=== PATIENT | female | born 1990 | race Hispanic/Latino ===

== ENCOUNTER 2018-07-25 10:21 | Emergency (ER) | payer MEDICAID, OTHER ==
[2018-07-25 11:00] LABS: #Lymphocytes 1.8 thou/uL (1.20-3.40); #Monocytes 0.4 thou/uL (0.11-0.59); #Neutrophils 6.3 thou/uL (1.40-6.50); %Basophils 0.6 % (0.0-1.0); %Eosinophils 0.4 % (0.0-10.0); %Monocytes 4.8 % (0.0-10.0); %Neutrophils 73.2 % (42.0-75.0); Hemoglobin 14.2 g/dL (12.0-16.0); Mean Corpuscular HGB CONC 34.1 g/dL (32.0-36.0); Mean Corpuscular Hemoglobin 30.7 pg (27.0-31.0); Mean Corpuscular Volume 90.1 fL (78.0-98.0); Mean Platelet Volume 8.7 fL (7.4-10.4); Platelet Count 207 thou/uL (130-400); RBC Distribution Width 11.5 % (11.5-14.5); Red Blood Cell (RBC) Count 4.61 mill/uL (4.20-5.40); White Blood Cell (WBC) Count 8.6 thou/uL (4.8-10.8)
[2018-07-25 11:23] LABS: Bilirubin Small (Negative); Blood, Urine Negative (Negative); Clarity CLOUDY (Clear); Glucose, Urine (Dipstick) Negative (Negative); Leukocyte Moderate (Negative); Nitrite Negative (Negative); Protein, Urine (Dipstick) 30 mg/dL (Neg-Trace); Specific Gravity, Urine 1.031 (1.002-1.036)
[2018-07-25 11:29] LABS: Albumin 4.4 g/dL (3.5-5.0); Anion Gap 12 mmol/L (10-20); Calcium 9.8 mg/dL (7.8-10.44); Carbon Dioxide 20 mmol/L (22-29); Chloride 107 mmol/L (98-107); Globulin 3.2 g/dL (2.4-3.5); Glucose 79 mg/dL (70-105); Potassium 3.7 mmol/L (3.5-5.1); Protein, Total 7.6 g/dL (6.0-8.3); Sodium 135 mmol/L (136-145)
[2018-07-25 11:31] LABS: Pathc Cast-AUWi Flag 0.14 (0-2.49)
[2018-07-25 11:40] LABS: Alkaline Phosphatase 56 U/L (40-150); Bilirubin, Total 0.4 mg/dL (0.2-1.2); Calc. Creatinine Clearance 0 mL/min (70-130); Estimated GFR-MDRD Greater than 90
[2018-07-25 11:41] LABS: Bacteria/HPF 1+ HPF (None Seen); Hyaline Casts/LPF NONE SEEN LPF (0-3 Hyaline); RBC/HPF None Seen HPF (0-3); WBC/HPF 0-3 HPF (0-3)
[2018-07-25 11:41] LABS: ALT (SGPT) 17 U/L (8-55); AST (SGOT) 15 U/L (5-34); BUN (Urea Nitrogen) 7 mg/dL (7.0-18.7)
[2018-07-25] MEDS ORDERED: Ondansetron ODT 4 MG TAB ONE (13:25)
[2018-07-25] MEDS ORDERED: Mag-Al 1200 mg/1200 mg/30 ML UDCUP ONE (13:52)
== END 2018-07-25 15:00 | disposition home or self-care (01) ==
LOC: ERS 10:21
DX: O21.9 Vomiting of pregnancy, unspecified (principal); O99.89 Other specified diseases and conditions complicating pregnancy, childbirth and the puerperium; R82.71 Bacteriuria; O99.341 Other mental disorders complicating pregnancy, first trimester; F41.9 Anxiety disorder, unspecified; F32.9 Major depressive disorder, single episode, unspecified; Z3A.11 11 weeks gestation of pregnancy
CPT/HCPCS: 36415; 80053; 81003; 81015; 84702; 85025; 87086; 99284; Q0162

== ENCOUNTER 2018-11-19 19:37 | Day surgery (SDC) | payer MEDICAID, OTHER ==
[2018-11-19 20:07] VITALS: BMI 26.8
--- NOTE | 2018-11-19 20:42 | HP ---
TRIAGE HISTORY AND PHYSICAL. TIME OF EVALUATION/INTERVENTION: 2020 hours. This is a patient of Dr. Iman Marin. The patient is here for a complaint of vaginal discharge/white. HISTORY OF PRESENT ILLNESS: This is a 28-year-old, G2, P1 with a history of a prior vaginal , who is at 28 weeks and 1 day gestation with a complaint of white discharge for 2 days. She denies gush of water, leakage, or vaginal bleeding. She denies fever or GI symptoms. She has no dysuria. She has good movement. REVIEW OF SYSTEMS: Complete review of systems was checked and is otherwise negative unless specified in the HPI. PAST MEDICAL HISTORY: Noncontributory. PAST SURGICAL HISTORY: Negative. OB HISTORY: Significant for a vaginal . ALLERGIES: NONE. SOCIAL HISTORY: Negative x3. PHYSICAL EXAMINATION: VITAL SIGNS: On physical exam, the patient's blood pressure is 117/71 and temperature is 98.2. GENERAL: She is in no acute distress. ABDOMEN: Soft and nontender and size consistent with dates. PELVIC: There is no evidence of vaginal bleeding grossly. Cervical exam is currently deferred. It is deferred as there are no symptoms of contractions. I have ordered 2 interventions, a VPIII vaginal test and an AmniSure vaginal collection. On monitor, heart tones are category 1, even though she is only at 28 weeks. She has no evidence of contractions. ASSESSMENT: This is a 28-year-old, G2, P1, at 28 weeks and 1 day with complaint of vaginal discharge, suspicious for vaginitis. There is no evidence of overt rupture of membranes. PLAN: 1. I will order AmniSure to confirm that this is not the fluid, although I do not suspect that based on history. 2. I have ordered a VPIII for vaginitis evaluation. 3. No evidence of labor at this time. 4. We will await final VPIII results and AmniSure results for final disposition. Job ID: [id number]
[2018-11-19 21:06] LABS: Amnisure Test No Membranes Rupture (No Rupture)
[2018-11-19 21:07] LABS: Amnisure Internal Control QC ACCEPTABLE (ACCEPTABLE)
--- NOTE | 2018-11-19 22:05 | PDOC.EVN ---
Event Note - Event Note Event Note: and VP3 negative. No evidence abnormal results and clinically well...ok for outpatinet follow up
== END 2018-11-19 22:15 | disposition home or self-care (01) ==
LOC: L&D/OP 19:37
PROVIDERS: ATTEND Obstetrics & Gynecology
DX: O99.89 Other specified diseases and conditions complicating pregnancy, childbirth and the puerperium (principal); N89.8 Other specified noninflammatory disorders of vagina; Z3A.28 28 weeks gestation of pregnancy; Z79.899 Other long term (current) drug therapy
CPT/HCPCS: 84112; 87480; 87510; 87660; 99283

== ENCOUNTER 2018-12-18 17:17 | Day surgery (SDC) | payer OTHER ==
[2018-12-18 17:42] VITALS: BP 101/62; TEMP 98.6; BMI 28.9
[2018-12-18 18:41] LABS: Bilirubin Negative (Negative); Blood, Urine Negative (Negative); Clarity CLEAR (Clear); Glucose, Urine (Dipstick) Negative (Negative); Leukocyte Small (Negative); Nitrite Negative (Negative); Protein, Urine (Dipstick) Negative (Neg-Trace); Specific Gravity, Urine 1.022 (1.002-1.036); pH, Urine 6.5 (5.0-9.0)
[2018-12-18 18:44] LABS: Bacteria/HPF None Seen HPF (None Seen); Hyaline Casts/LPF 0-3 HYALINE CAST LPF (0-3 Hyaline); Pathc Cast-AUWi Flag 0.29 (0-2.49); RBC/HPF 0-3 HPF (0-3); Squamous Epithelial 0-3 HPF (0-3); WBC/HPF 0-3 HPF (0-3)
[2018-12-18] MEDS ORDERED: Lactated Ringer's 1,000 ML IV SCH (18:45)
--- NOTE | 2018-12-18 19:20 | PDOC.LDPN ---
Labor & Delivery Progress Note - Subjective Subjective: vaginal pressure - Objective Vital signs reviewed and normal: yes General: NAD Uterine fundus: non tender Dilation: FT Effacement: 0% Station: -3 FHT: category 1 [place] contractions every: irregular, now resolved with IVF hydration - Assessment (1) 32 weeks gestation of Code(s): Z3A.32 - 32 WEEKS GESTATION OF Current Visit: Yes Status : Acute (2) contractions Code(s): O47.9 - FALSE LABOR, UNSPECIFIED Current Visit: Yes Status: Acute
--- NOTE | 2018-12-18 20:07 | PRG ---
DATE OF SERVICE: 12/18/2018 OB ED note. TIME OF SERVICE: 1915 hours. PRESENTING COMPLAINTS: Possible contractions, possible dehydration at 32 weeks. HISTORY OF PRESENT ILLNESS: Ms. Chau is a 28-year-old, 2, para 1, at 32 weeks with a stated EDC of 02/10, who was seen by Dr. Marin at [facility]. She was noted to not have ruptured membranes and a long cervix. However, she was feeling some contractions, was concerned about possible labor. The patient was sent over and received IV fluids. She is noted to not be having any significant contractions and has a category one heart rate tracing. 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 History of BV. Blood type A positive. Antibody negative. Pap negative. Rubella immune. VDRL nonreactive. Hepatitis B, GC, chlamydia negative, 50-gram within normal limits. PAST MEDICAL HISTORY: Denies. PAST SURGICAL HISTORY: Denies. ALLERGIES: DENIES. MEDICATIONS: vitamins. SOCIAL HISTORY: Denies tobacco, alcohol, drug abuse. FAMILY HISTORY: Noncontributory. REVIEW OF SYSTEMS: Noncontributory. PHYSICAL EXAMINATION: GENERAL: female, resting comfortably. No acute distress. VITAL SIGNS: Blood pressure 102/61, pulse 85, respirations 18, and temperature 98.4. HEENT: Within normal limits. LUNGS: Clear to auscultation bilaterally. HEART: Regular rate and rhythm. ABDOMEN: Soft and nontender without rebound or guarding. No palpable contractions. GENITALIA: Vaginal exam is deferred as it was performed by Dr. Marin in the office. heart rate tracing reveals a category one tracing. Known significant contractions noted. No deaccelerations noted. The patient received 1 L of IV fluids and feels better. No significant contractions noted prior to or after IV fluid administration. IMPRESSION: Discomforts of with [place] contractions. No evidence of active labor at 32 weeks gestation. PLAN: Discharge home. Keep scheduled followup with Dr. Marin. The patient was diagnosed with BV and given a prescription for Flagyl, which she will grape picker at the pharmacy. This diagnosis was made at [facility]. Job ID: [id number]
== END 2018-12-18 19:24 | disposition home health service (06) ==
LOC: L&D/OP 17:17
PROVIDERS: ATTEND Obstetrics & Gynecology
DX: O47.03 False labor before 37 completed weeks of gestation, third trimester (principal); Z3A.32 32 weeks gestation of pregnancy
CPT/HCPCS: 81003; 81015; 84112; 96360; 99284

== ENCOUNTER 2019-02-03 09:17 | Day surgery (SDC) | payer OTHER ==
[2019-02-03 10:11] VITALS: BMI 30.6
[2019-02-03 10:59] LABS: #Lymphocytes 2.2 thou/uL (1.20-3.40); #Monocytes 0.6 thou/uL (0.11-0.59); #Neutrophils 5.6 thou/uL (1.40-6.50); %Basophils 0.2 % (0.0-1.0); %Eosinophils 0.3 % (0.0-10.0); %Lymphocytes 25.9 % (21.0-51.0); %Monocytes 6.9 % (0.0-10.0); %Neutrophils 66.7 % (42.0-75.0); Hemoglobin 9.2 g/dL (12.0-16.0); Mean Corpuscular Hemoglobin 24.7 pg (27.0-31.0); Mean Corpuscular Volume 77.1 fL (78.0-98.0); Platelet Count 199 thou/uL (130-400); RBC Distribution Width 15.3 % (11.5-14.5); Red Blood Cell (RBC) Count 3.71 mill/uL (4.20-5.40); White Blood Cell (WBC) Count 8.4 thou/uL (4.8-10.8)
[2019-02-03 11:20] LABS: ALT (SGPT) 9 U/L (8-55); AST (SGOT) 15 U/L (5-34); Albumin 3.2 g/dL (3.5-5.0); Alkaline Phosphatase 193 U/L (40-150); Anion Gap 14 mmol/L (10-20); BUN (Urea Nitrogen) 9 mg/dL (7.0-18.7); Bilirubin, Total 0.2 mg/dL (0.2-1.2); Calc. Creatinine Clearance 171 mL/min (70-130); Calcium 9.6 mg/dL (7.8-10.44); Carbon Dioxide 18 mmol/L (22-29); Chloride 110 mmol/L (98-107); Estimated GFR-MDRD Greater than 90; Globulin 2.9 g/dL (2.4-3.5); Glucose 96 mg/dL (70-105); Potassium 3.6 mmol/L (3.5-5.1); Protein, Total 6.1 g/dL (6.0-8.3); Sodium 138 mmol/L (136-145)
[2019-02-03 11:29] LABS: Bilirubin Negative (Negative); Blood, Urine Negative (Negative); Clarity CLEAR (Clear); Glucose, Urine (Dipstick) Negative (Negative); Leukocyte Moderate (Negative); Nitrite Negative (Negative); Protein, Urine (Dipstick) Negative (Neg-Trace); Specific Gravity, Urine 1.017 (1.002-1.036)
[2019-02-03 11:32] LABS: Bacteria/HPF None Seen HPF (None Seen); Hyaline Casts/LPF 0-3 HYALINE CAST LPF (0-3 Hyaline); Pathc Cast-AUWi Flag 0.27 (0-2.49); RBC/HPF 0-3 HPF (0-3); Squamous Epithelial 0-3 HPF (0-3)
--- NOTE | 2019-02-03 13:16 | SS ---
DATE OF ADMISSION: 02/03/2019 DATE OF DISCHARGE: 02/03/2019 REGULAR PHYSICIAN: Iman Marin D.O. EVALUATING PHYSICIAN: Micheal Chapin MD. CHIEF COMPLAINT: Back pain, nausea, vomiting, diarrhea at home. HISTORY OF PRESENT ILLNESS: Ms. Chau is a 28-year-old , G2, P1-0-0-1 with an estimated date of confinement of 02/10/2019, who presents complaining of back pain, suspected contractions with mild episodes of nausea and diarrhea at home. She states she has vomited once. She denies ruptured membranes or vaginal bleeding. Her care has been with Dr. Marin and has been reportedly uncomplicated at [facility]. PAST OBSTETRICAL HISTORY: Includes 1 vaginal delivery at term of a 7 pound . PAST MEDICAL HISTORY: Anxiety. PAST SURGICAL HISTORY: None. CURRENT MEDICATIONS: vitamins and iron. ALLERGIES: NO KNOWN ALLERGIES. SOCIAL HISTORY: Denies tobacco, alcohol, or drug use. FAMILY HISTORY: Unremarkable. REVIEW OF SYSTEMS: Positive for nausea, vomiting, diarrhea. Denies fever, chills, ruptured membranes, vaginal bleeding. PHYSICAL EXAMINATION: VITAL SIGNS: Stable. She is afebrile in triage. GENERAL: She is pleasant and in no acute distress. ABDOMEN: Soft, nontender, and gravid. There is no guarding or rebound. PELVIS: Pelvic examination by the labor nurse shows the cervix to be 1 cm long posterior with a vertex presenting. heart rate tracing is stable and is reassuring. Only an occasional contraction is seen. LABORATORY DATA: White count 8.4, hemoglobin and hematocrit 9.2 and 28, platelet count is 199,000. Chemistry show a sodium 138, potassium of 3.6, creatinine of 0.58, total bilirubin 0.2, AST and ALT are 15 and 9 respectively. Urinalysis shows a specific gravity of 1.017 with negative protein and negative ketones. ASSESSMENT: 1. A 39 week intrauterine . 2. Complaints of nausea, vomiting, diarrhea with none seen in triage. No evidence of dehydration. PLAN: The patient will be discharged to home. She was told to optimize her hydration at home with Gatorade and use a soft bland diet when she is tolerated past this. She can also use some Lomotil [id number] for any diarrhea that she has. She was given labor precautions and states that she has an appoint with Dr. Marin next Tuesday. Job ID: [id number]
== END 2019-02-03 12:21 | disposition home health service (06) ==
LOC: L&D/OP 09:17
PROVIDERS: ATTEND Obstetrics & Gynecology
DX: O99.89 Other specified diseases and conditions complicating pregnancy, childbirth and the puerperium (principal); M54.9 Dorsalgia, unspecified; R19.7 Diarrhea, unspecified; R11.2 Nausea with vomiting, unspecified; O99.343 Other mental disorders complicating pregnancy, third trimester; F41.9 Anxiety disorder, unspecified; Z3A.39 39 weeks gestation of pregnancy; Z79.899 Other long term (current) drug therapy
CPT/HCPCS: 36415; 80053; 81003; 81015; 85025; 99283

== ENCOUNTER 2019-02-13 23:06 | Inpatient (IN) | payer OTHER ==
[~2019-02-13 23:06] MED LIST: Bupivacaine/Epinephrine 0.25% 30 ML VIAL ONE
[2019-02-14] MEDS ORDERED: HYDROcodone/Acetaminophen 5/325 mg Tablet PO PRN (00:03)
[2019-02-14] MEDS ORDERED: Carboprost 250 MCG/ML AMP IM PRN (00:03)
[2019-02-14] MEDS ORDERED: Methylergonovine 0.2 MG/ML VIAL IM PRN (00:03)
[2019-02-14] MEDS ORDERED: Promethazine HCl 25 MG/ML VIAL IM PRN ×2 (00:03→02:42)
[2019-02-14] MEDS ORDERED: Ondansetron PF 4 MG/2 ML Vial IVP PRN ×2 (00:03→02:42)
[2019-02-14] MEDS ORDERED: Misoprostol 200 MCG TAB PR PRN (00:03)
[2019-02-14] MEDS ORDERED: Diphenoxylate HCl/Atropine Tablet PO PRN (00:03)
[2019-02-14] MEDS ORDERED: Lidocaine 1% (PF) 30 ML VIAL SC PRN (00:03)
[2019-02-14] MEDS ORDERED: Penicillin G Potassium 5 MILL.UNITS in Sodium Chloride 0.9% 100 ML IVPB SCH (00:03)
[2019-02-14] MEDS ORDERED: Ibuprofen 800 MG TAB PO PRN (00:03)
[2019-02-14] MEDS ORDERED: NS w/ Oxytocin 10 units 500 ML IV SCH (00:03)
[2019-02-14] MEDS ORDERED: Acetaminophen 500 MG TAB PO PRN (00:03)
[2019-02-14] MEDS ORDERED: Butorphanol Tartrate 1 MG/ML VIAL SLOW IVP PRN (00:03)
[2019-02-14] MEDS ORDERED: NS / Oxytocin 40 units/1000ml 1,000 ML IV PRN (00:03)
[2019-02-14 00:31] VITALS: BMI 31.4
[2019-02-14] MEDS: Lactated Ringer's 1,000 ML IV SCH ×2 (00:53→16:39)
[2019-02-14 01:31] LABS: Hemoglobin 8.7 g/dL (12.0-16.0); Mean Corpuscular HGB CONC 32.5 g/dL (32.0-36.0); Mean Corpuscular Hemoglobin 24.3 pg (27.0-31.0); Mean Corpuscular Volume 74.9 fL (78.0-98.0); Mean Platelet Volume 11.2 fL (7.4-10.4); Platelet Count 210 thou/uL (130-400); RBC Distribution Width 15.6 % (11.5-14.5); Red Blood Cell (RBC) Count 3.56 mill/uL (4.20-5.40); White Blood Cell (WBC) Count 9.6 thou/uL (4.8-10.8)
[2019-02-14] MEDS ORDERED: Fentanyl 4 mcg/Bup 0.1% Cadd 100 ML ONE (01:46)
[2019-02-14 02:06] LABS: HBSAg Index 0.28 S/CO (0-0.99); HIV (1/2) Antibody/Antigen Non-Reactive (NonReactive); HIV 1/2 INDEX 0.06 S/CO (<1.00); Hep B Surf Ag Non-Reactive S/CO (NonReactive)
[2019-02-14] MEDS ORDERED: diphenhydrAMINE 50 MG/ML VIAL IVP PRN (02:42)
[2019-02-14] MEDS ORDERED: Acetaminophen 325 MG TAB PO PRN (02:42)
[2019-02-14] MEDS ORDERED: ePHEDrine/0.9% NaCl/PF SYRINGE 50 mg/10 ml SLOW IVP PRN (02:42)
[2019-02-14] MEDS ORDERED: Naloxone HCl 0.4 mg/ml Vial IVP PRN ×2 (02:42)
[2019-02-14] MEDS ORDERED: Lactated Ringer's 500 ML IV PRN (02:42)
[2019-02-14] MEDS ORDERED: Eucerin (Mineral Oil/Petrolatum,White) 30 gm Jar TOP PRN (02:42)
[2019-02-14] MEDS ORDERED: Communication Order-Pharmacy FS SCH (02:45)
[2019-02-14] MEDS ORDERED: Fentanyl 4 mcg/Bupivacaine 0.1% Cassette 100 ML EPIDURAL SCH (02:45)
[2019-02-14 04:33] LABS: Syphilis Antibody Nonreactive (Nonreactive); Syphilis Antibody Index 0.03 S/CO (<1.00 Non-Reactive)
--- NOTE | 2019-02-14 06:47 | PDOC.OPDEL ---
OB Operative/Delivery Note Delivery Dr/Surgeon: Iman Marin DO Pre-Delivery Diagnosis: active labor Procedure/Post Delivery Dx: spontaneous vaginal delivery Weeks gestation: 40 - Findings A Sex: male - 1 min: 8 - 5 min: 9 - Additional Findings/Plan Placenta delivered: spontaneous Repaired Obstetrical Laceration: other (small left hymenal laceration) Estimated blood loss: EBL 300 cc Compilations/Other Findings: Thin meconium stained amniotic fluid Infant in cepahlic presentation, KAYLAH position Nuchal cord x1 Normal appearing placenta Inadequate GBS PPX, only 2.5 hrs of PPX given. Post delivery plan: routine recovery
--- NOTE | 2019-02-14 06:50 | PDOC.LDHP ---
Labor and Delivery H&P Chief complaint: contractions HPI: LATE ENTRY H&P 28 yo @ 40w4d by LMP c/w 13 week sono who presented with c/o ctx. Pt had dilipans placed yesterday and was found to be 5 cm. Due date: 02/10/19 Dating criteria: last menstrual period Grav: 2 Para: 1 Current complications: none Abnormal US findings: No Past Medical History: Anemia, anxiety, depression Current medications: pre-gerard vitamins, iron Previous surgical history: none Allergies/Adverse Reactions: Allergies Allergy/AdvReac Type Severity Reaction Status Date / Time No Known Allergies Allergy Verified 02/03/19 09:59 Social history: none - Physical Exam Vital signs reviewed and normal: yes General: NAD Heart: RRR Lungs: nonlabored breathing Abdomen: gravid Extremeties: no edema FHT: category 1 (on admission) - Vaginal Exam cm dilated: 5 (on admission per RN ) Effacement: 50% Station: -3 - OB Labs Blood type: A RH: positive Antibody Screen: negative HIV: negative RPR: negative HEPSAg: negative 1 hour GCT: negative GBS: positive Urine drug screen: negative Rubella: immune - Assessment 40w4d IUP Labor, s/p dilipans GBS + - Plan Plan: admit to L&D, GBS antibiotic prophylaxis, informed consent obtained, anesthesia consult for pain management -: Pt received pitocin for augmentation and now s/p .
[2019-02-14] MEDS: Penicillin G 2.5 MILL.units 2.5 MILL.UNITS in Premix Bag 1 BAG IVPB SCH ×3 (07:03→16:39)
[2019-02-14 13:44] LABS: #Lymphocytes 2.2 thou/uL (1.20-3.40); #Monocytes 1.1 thou/uL (0.11-0.59); #Neutrophils 11.2 thou/uL (1.40-6.50); %Basophils 0.2 % (0.0-1.0); %Eosinophils 0.2 % (0.0-10.0); %Monocytes 7.8 % (0.0-10.0); %Neutrophils 76.8 % (42.0-75.0); Hemoglobin 7.7 g/dL (12.0-16.0); Mean Corpuscular HGB CONC 31.5 g/dL (32.0-36.0); Mean Corpuscular Hemoglobin 23.9 pg (27.0-31.0); Mean Corpuscular Volume 75.8 fL (78.0-98.0); Mean Platelet Volume 11.2 fL (7.4-10.4); Platelet Count 184 thou/uL (130-400); RBC Distribution Width 15.6 % (11.5-14.5); Red Blood Cell (RBC) Count 3.22 mill/uL (4.20-5.40); White Blood Cell (WBC) Count 14.6 thou/uL (4.8-10.8)
[2019-02-14] MEDS ORDERED: Benzocaine-Menthol 82.5 ML CAN TOP PRN (16:31)
[2019-02-14] MEDS ORDERED: NS / Oxytocin 40 units/1000ml 1,000 ML IV SCH (16:31)
[2019-02-14] MEDS ORDERED: Milk Of Magnesia 30 ML UDCUP PO PRN (16:31)
[2019-02-14] MEDS ORDERED: Bisacodyl 10 MG SUPP PR PRN (16:31)
[2019-02-14] MEDS: Ferrous Sulfate 325 MG TAB PO SCH (17:15)
[2019-02-14] MEDS ORDERED: Lanolin Ointment 7 GM TUBE TOP PRN (17:55)
[2019-02-14] MEDS: Ibuprofen 800 MG TAB PO SCH (21:59)
[2019-02-14] MEDS: Docusate Calcium (SURFAK) 240 MG CAP PO SCH (21:59)
[2019-02-15] MEDS: Ibuprofen 800 MG TAB PO SCH ×3 (06:12→22:14)
[2019-02-15 07:40] LABS: Mean Corpuscular HGB CONC 31.2 g/dL (32.0-36.0); Mean Corpuscular Hemoglobin 23.8 pg (27.0-31.0); Mean Corpuscular Volume 76.3 fL (78.0-98.0); Mean Platelet Volume 10.7 fL (7.4-10.4); Platelet Count 159 thou/uL (130-400); RBC Distribution Width 15.7 % (11.5-14.5); Red Blood Cell (RBC) Count 2.92 mill/uL (4.20-5.40); White Blood Cell (WBC) Count 8.4 thou/uL (4.8-10.8)
--- NOTE | 2019-02-15 08:14 | PDOC.PP ---
Post Progress Note Post Day #: 1 Subjective: Doing well. No concerns. Breast feeding. Minimal lochia and pain. Denies any dizziness, palpitations, chest pain or other concerns or sx of anemia. PO intake tolerated: yes Flatus: yes Ambulation: yes Vital Signs (12 hours) Temp Pulse Resp BP Pulse Ox 02/15/19 04:20 98.6 F 85 16 104/55 L 98 02/15/19 00:10 97.9 F 86 16 110/59 L 97 Weight Weight 166 lb - Physical Examination General: NAD Cardiovascular: RRR Respiratory: non-labored breathing Abdominal: no distention, appropriately TTP Fundus firm & at: below umbilicus Extremities: negative homans (B) Neurological: no gross focal deficits Psychiatric: A&Ox3, normal affect Result Diagrams: 02/15/19 07:19 Additional Labs: Post Labs Blood Type O POSITIVE 02/14/19 01:04 Hep Bs Antigen Non-Reactive S/CO (NonReactive) 02/14/19 01:04 (1) (spontaneous vaginal delivery) Code(s): O80 - ENCOUNTER FOR FULL-TERM UNCOMPLICATED DELIVERY Status: Acute (2) Anemia Code(s): D64.9 - ANEMIA, UNSPECIFIED Status: Acute Qualifiers: Anemia type: iron deficiency Iron deficiency anemia type: unspecified iron deficiency Qualified Code(s): D50.9 - Iron deficiency anemia, unspecified - Assessment/Plan PPD1 VSSAF Hbg 7 (appropriate for H/H on admission with EBL), no sx of anemia today. Advised to monitor. Fe supplement. Continue PP care. Plan for d/c tomorrow due to infant with inadequate GBS PPX
[2019-02-15] MEDS: Docusate Calcium (SURFAK) 240 MG CAP PO SCH ×2 (09:42→22:14)
[2019-02-15] MEDS: Ferrous Sulfate 325 MG TAB PO SCH ×2 (09:42→18:24)
[2019-02-15] MEDS: HYDROcodone/Acetaminophen 5/325 mg Tablet PO PRN ×2 (11:26→19:45)
[2019-02-16] MEDS: Ibuprofen 800 MG TAB PO SCH (06:22)
--- NOTE | 2019-02-16 07:51 | PDOC.PP ---
Post Progress Note Post Day #: 2 Subjective: No concerns. Minimal lochia. Denies any dizziness, palpitations or other concerns. PO intake tolerated: yes Flatus: yes Ambulation: yes Vital Signs (12 hours) Temp Pulse Resp BP Pulse Ox 02/16/19 06:23 98.2 F 92 16 120/80 97 Weight Weight 166 lb - Physical Examination General: NAD Cardiovascular: RRR Respiratory: non-labored breathing Abdominal: no distention, appropriately TTP Fundus firm & at: below umbilicus Extremities: negative homans (B) Neurological: no gross focal deficits Psychiatric: A&Ox3, normal affect Result Diagrams: 02/15/19 07:19 Additional Labs: Post Labs Blood Type O POSITIVE 02/14/19 01:04 Hep Bs Antigen Non-Reactive S/CO (NonReactive) 02/14/19 01:04 (1) (spontaneous vaginal delivery) Code(s): O80 - ENCOUNTER FOR FULL-TERM UNCOMPLICATED DELIVERY Status: Acute (2) Anemia Code(s): D64.9 - ANEMIA, UNSPECIFIED Status: Acute Qualifiers: Anemia type: iron deficiency Iron deficiency anemia type: unspecified iron deficiency Qualified Code(s): D50.9 - Iron deficiency anemia, unspecified - Assessment/Plan PPD2 VSSAF Denies any anemia sx. D/C home with iron and motrin. F/U 6 weeks.
[2019-02-16 07:59] VITALS: BP 99/60; TEMP 98
[2019-02-16] MEDS: Ferrous Sulfate 325 MG TAB PO SCH (09:19)
[2019-02-16] MEDS: Docusate Calcium (SURFAK) 240 MG CAP PO SCH (09:20)
== END 2019-02-16 10:30 | disposition home or self-care (01) | DRG 807 ==
LOC: L&D 23:06 → 3SE 02-14 16:21
PROVIDERS: ADMIT Obstetrics & Gynecology; ATTEND Obstetrics & Gynecology
PROC: 10E0XZZ Delivery of Products of Conception, External Approach (ICD-10-PCS; principal; 2019-02-14)
PROC: 0HQ9XZZ Repair Perineum Skin, External Approach (ICD-10-PCS; 2019-02-14)
DX: O48.0 Post-term pregnancy (principal); Z37.0 Single live birth; O69.81X0 Labor and delivery complicated by cord around neck, without compression, not applicable or unspecified; O70.0 First degree perineal laceration during delivery; O99.344 Other mental disorders complicating childbirth; F41.9 Anxiety disorder, unspecified; F32.9 Major depressive disorder, single episode, unspecified; O77.0 Labor and delivery complicated by meconium in amniotic fluid; Z3A.40 40 weeks gestation of pregnancy; O99.02 Anemia complicating childbirth; D50.9 Iron deficiency anemia, unspecified
CPT/HCPCS: 36415; 51702; 85027; 86780; 86850; 86900; 86901; 87340; 87389; J2540; J7050

== ENCOUNTER 2019-09-08 10:29 | Emergency (ER) | payer OTHER, SELFPAY ==
[2019-09-08 12:23] LABS: Bilirubin Negative (Negative); Blood, Urine Negative (Negative); Clarity Turbid (Clear); Glucose, Urine (Dipstick) Normal (Negative); Leukocyte 500 Leu/uL (Negative); Nitrite Negative (Negative); Protein, Urine (Dipstick) 100 mg/dL (Neg-Trace); Urobilinogen 3 mg/dL (Less than 2); WBC/HPF 21-50 HPF (0-3)
[2019-09-08] MEDS ORDERED: Ondansetron PF 4 MG/2 ML Vial ONE (12:32)
[2019-09-08 12:33] LABS: Bacteria/HPF 2+ HPF (None Seen); RBC/HPF 0-3 HPF (0-3)
[2019-09-08 12:34] LABS: Mucous/LPF 2+ LPF (<2+)
[2019-09-09 21:36] LABS: Chlamydia by PCR Not Detected (NotDetected); GC by PCR Not Detected (NotDetected)
== END 2019-09-08 14:06 | disposition home or self-care (01) ==
LOC: ERS 10:29
DX: O21.0 Mild hyperemesis gravidarum (principal); O23.41 Unspecified infection of urinary tract in pregnancy, first trimester; O99.341 Other mental disorders complicating pregnancy, first trimester; F32.9 Major depressive disorder, single episode, unspecified; F41.9 Anxiety disorder, unspecified; Z3A.01 Less than 8 weeks gestation of pregnancy
CPT/HCPCS: 81003; 81015; 87480; 87491; 87510; 87591; 87660; 96361; 96374; J2405

== ENCOUNTER 2019-12-12 16:14 | Emergency (ER) | payer OTHER | END 2019-12-12 17:28 | disposition home or self-care (01) | LOC: ERS 16:14 | DX: O99.512 Diseases of the respiratory system complicating pregnancy, second trimester (principal); J11.1 Influenza due to unidentified influenza virus with other respiratory manifestations; O99.342 Other mental disorders complicating pregnancy, second trimester; F41.9 Anxiety disorder, unspecified; F32.9 Major depressive disorder, single episode, unspecified; Z3A.19 19 weeks gestation of pregnancy | CPT/HCPCS: 87804; 99283 ==

== ENCOUNTER 2022-07-22 13:01 | Outpatient (CLI) | payer OTHER | END 2022-07-22 13:02 | disposition home or self-care (01) | LOC: ULT 13:01 | PROVIDERS: ATTEND Family Medicine | DX: R10.2 Pelvic and perineal pain (principal) | CPT/HCPCS: 76856; 93976 ==

== ENCOUNTER 2024-08-10 08:11 | Outpatient (CLI) | payer OTHER ==
[2024-08-10] MEDS ORDERED: Iopamidol 370 76% 100 ML VIAL ONE (11:15)
== END 2024-08-10 08:12 | disposition home or self-care (01) ==
LOC: CT 08:11
PROVIDERS: ATTEND Urology
DX: N13.30 Unspecified hydronephrosis (principal); R10.30 Lower abdominal pain, unspecified; R35.0 Frequency of micturition
CPT/HCPCS: 74178; Q9967

== ENCOUNTER 2024-09-13 13:53 | Outpatient (CLI) | payer OTHER ==
[2024-09-13] MEDS ORDERED: Iopamidol-370 76% 500 ML BOT (X-RAY USE) FS ONE (14:35)
[2024-09-13 14:54] LABS: BHCG - Serum Negative (NEGATIVE); Pregs Control Background? CLEAR/WHITE (CLR/WHITE); Pregs Control Bar Appear? YES (CONTROL BAR)
== END 2024-09-13 13:54 | disposition home or self-care (01) ==
LOC: RAD 13:53
PROVIDERS: ATTEND Urology
DX: Z32.00 Encounter for pregnancy test, result unknown (principal); N13.30 Unspecified hydronephrosis; R10.30 Lower abdominal pain, unspecified; R35.0 Frequency of micturition
CPT/HCPCS: 36415; 51600; 74455; 84703; Q9967